=== PATIENT | female | born 1995 | race American Indian/Alaskan Native ===

== ENCOUNTER 2020-12-16 15:12 | Emergency (ER) | payer SELFPAY ==
[2020-12-16] MEDS ORDERED: KETOROLAC 30 MG/1 ML INJ IV ONE (17:03)
[2020-12-16] MEDS ORDERED: SODIUM CHLORIDE 0.9% 1000 ML 1,000 ML IV ONE (17:03)
[2020-12-16] MEDS ORDERED: ONDANSETRON 4 MG/2 ML INJ IV ONE (17:03)
--- NOTE | 2020-12-16 17:03 | Emergency Department Report ---
ED Abdominal Pain HPI - General Chief Complaint: Abdominal Pain Stated Complaint: ABD PAIN PUI?: No Time Seen by Provider: 12/16/20 16:34 Source: patient Mode of arrival: Ambulatory Limitations: No Limitations - History of Present Illness Initial Comments: 25-year-old female presents to the ER today with complaints of left flank pain. Patient states her symptoms started about 4 days ago and got worse yesterday. She said she thought the pain was related to [employer]'s that she had eaten, but she states that this pain has continued and has gotten worse. She states that it seems to be worse with movement and certain positions. She denies any particular injury or any strenuous activity. She states that she also has been feeling constipated, and has not had a normal bowel movement in 4 days. She has tried drinking water, coffee and smoothies without any relief of her constipation. She states that she had a fever of 101 yesterday but did not take anything for it. She denies any nausea or vomiting. She denies any UTI symptoms. She states that her last menstrual cycle ended 2 days ago, but yesterday she started bleeding again for which she had to use 3 tampons but she denies any bleeding today. She does have the Implanon. She is not concerned for . She denies any abdominal surgeries in the past. She does not do any illicit drugs and drinks socially. MD Complaint: flank pain (left ) -: Sudden Severity scale (0 -10): 7 - Related Data Previous Rx's Medication Instructions Recorded Last Taken Type Docusate Sodium [Colace] 100 mg PO BID #30 capsule 12/16/20 Unknown Rx Ketorolac [Toradol] 10 mg PO Q6H PRN #20 tablet 12/16/20 Unknown Rx cephALEXin [Keflex] 500 mg PO Q6HR #40 capsule 12/16/20 Unknown Rx Allergies Allergy/AdvReac Type Severity Reaction Status Date / Time No Known Allergies Allergy Unverified 12/16/20 15:55 ED Review of Systems ROS: Stated complaint: ABD PAIN Other details as noted in HPI Comment: All other systems reviewed and negative Constitutional: fever. denies: chills Eyes: denies: eye pain, eye discharge, vision change ENT: denies: ear pain, throat pain, dental pain, hearing loss, epistaxis, congestion Respiratory: denies: cough, shortness of breath, wheezing Cardiovascular: denies: chest pain, palpitations, dyspnea on exertion, edema, syncope, paroxysmal nocturnal dyspnea Gastrointestinal: abdominal pain, constipation. denies: nausea, vomiting, diarrhea, hematemesis, hematochezia Genitourinary: denies: urgency, dysuria, discharge Musculoskeletal: other (Left flank pain) Skin: denies: rash, lesions Neurological: denies: headache, weakness, paresthesias Psychiatric: denies: anxiety, depression Hematological/Lymphatic: denies: easy bleeding, easy bruising ED Past Medical Hx - Past Medical History Previous Medical History?: No - Surgical History Past Surgical History?: No - Medications Home Medications: Home Medications Medication Instructions Recorded Confirmed Last Taken Type Docusate Sodium [Colace] 100 mg PO BID #30 capsule 12/16/20 Unknown Rx Ketorolac [Toradol] 10 mg PO Q6H PRN #20 tablet 12/16/20 Unknown Rx cephALEXin [Keflex] 500 mg PO Q6HR #40 capsule 12/16/20 Unknown Rx ED Physical Exam - General Limitations: No Limitations General appearance: alert, in no apparent distress - Head Head exam: Present: atraumatic, normocephalic, normal inspection - Eye Eye exam: Present: normal appearance, PERRL, EOMI Pupils: Present: normal accommodation - ENT ENT exam: Present: normal exam - Neck Neck exam: Present: normal inspection, full ROM - Respiratory Respiratory exam: Present: normal lung sounds bilaterally. Absent: respiratory distress, wheezes, rales, rhonchi - Cardiovascular Cardiovascular Exam: Present: regular rate, normal rhythm, normal heart sounds - GI/Abdominal GI/Abdominal exam: Present: soft, tenderness (Mild tenderness left upper q uadrant without guarding or rebound). Absent: distended, guarding, rebound - Back Exam Back exam: Present: CVA tenderness (L) - Neurological Exam Neurological exam: Present: alert, oriented X3, CN II-XII intact, normal gait - Psychiatric Psychiatric exam: Present: normal affect, normal mood - Skin Skin exam: Present: intact ED Course Vital Signs 12/16/20 12/16/20 12/16/20 15:56 18:02 18:22 Temperature 99.6 F 99.2 F Pulse Rate 103 H 87 Respiratory 20 16 Rate Blood Pressure 134/75 134/81 [Right] O2 Sat by Pulse 98 99 100 Oximetry 12/16/20 12/16/20 19:16 20:53 Temperature 99 F Pulse Rate 84 97 H Respiratory 18 16 Rate Blood Pressure 133/79 110/79 [Right] O2 Sat by Pulse 100 100 Oximetry ED Medical Decision Making - Lab Data Result diagrams: 12/16/20 17:06 12/16/20 17:06 - Radiology Data Radiology results: report reviewed Patient: MARIE JANE MR#: [id number] : 1995 Acct:[id number] Age/Sex: 25 / F ADM Date: 12/16/20 Loc: ED Attending Dr: Ordering Physician: DASHA VALLADARES Date of Service: 12/16/20 Procedure(s): CT abdomen pelvis wo/w con Accession Number(s): [id number] cc: DASHA VALLADARES CT ABDOMEN AND PELVIS WITH CONTRAST INDICATION: left flank pain OMNI 300 100 ML CONTRAST: 100 cc Omnipaque 300 IV COMPARISON: None available. All CT scans at this location are performed using CT dose reduction for ALARA by means of automated exposure control. FINDINGS: Lung bases are clear. No pneumoperitoneum is seen. No definite abdominal masses are seen. Gallbladder and bile ducts appear within normal limits. No evidence of bowel obstruction is seen. No inflammatory changes are seen. No lymphadenopathy is noted. No free fluid is seen. No pelvic masses are noted. A normal appendix is seen medial to the cecum. A small linear density is noted in the right lateral paracolic gutter area with a small calcification in is not clearly related to the more medial appendix but is of doubtful significance. Mild evidence of constipation is seen, mostly right-sided. The kidneys are seen in a fairly early phase of contrast which I believe likely accounts for small bilateral areas of decreased cortical density. No definite masses are seen in the kidneys or other areas of the abdomen or pelvis. No urinary obstructive changes are seen. No obvious urinary tract calculi are noted. IMPRESSION: 1. Possible mild constipation, mostly right-sided 2. Appearance of the kidneys probably relates to phase of contrast as above. If the patient has a urinary tract infection and clinical evidence of pyelonephritis these could assume more significance as focal areas of possible infection but I do not favor that diagnosis solely from this study. No urinary obstructive changes are seen. Signer Name: Ephraim Yung MD Signed: 12/16/2020 7:22 PM Workstation Name: [id number] Transcribed By: GJ Dictated By: Ephraim Yung MD Electronically Authenticated By: Ephraim Yung MD Signed Date/Time: 12/16/201921 DD/ 13 TD/TT: - Medical Decision Making 2024: Currently sitting in the bed, on her phone and watching TV. She appears to be feeling better. She is currently not toxic or ill-appearing. She is neurologically intact with a normal gait. Repeat vital signs have been stable. All labs reviewed --- CBC shows elevated white count of 14 but otherwise unremarkable; CMP unremarkable; hCG negative; CT abdomen pelvis shows IMPRESSION: 1. Possible mild constipation, mostly right-sided 2. Appearance of the kidneys probably relates to phase of contrast as above. If the patient has a urinary tract infection and clinical evidence of pyelonephritis these could assume more significance as focal areas of possible infection but I do not favor that diagnosis solely from this study. No urinary obstructive changes are seen. Patient urinalysis is positive for UTI. Given patient location of pain, CVA tenderness on exam, white count of 14 and urinalysis showing UTI, there is concern for pyelonephritis. Patient is currently well-appearing and not in any significant distress. She is able to tolerate p.o. And her vital signs are stable and therefore at this time there is no indication for admission to the hospital at this time. Discussed all lab results and CT results and concerning diagnosis with patient. Patient will be treated outpatient with antibiotics, and encouraged to drink lots of water. She will be given Colace to help with her constipation. Patient expressed understanding of all instructions and agreed with plan. Patient stable at time of discharge. Critical care attestation.: If time is entered above; I have spent that time in minutes in the direct care of this critically ill patient, excluding procedure time. ED Disposition Clinical Impression: Pyelonephritis Disposition: 01 HOME / SELF CARE / HOMELESS Is pt being admited?: No Does the pt Need Aspirin: No Condition: Stable Instructions: Pyelonephritis, Adult, [id number], Abdominal Pain (ED) Additional Instructions: I recommend that you taking the keflex as prescribed and a taking the toradol as prescribed. Take the colace as prescribed. Increase your water intake. Follow up with your PCP this week. Return to ED if worse. Prescriptions: Docusate Sodium [Colace] 100 mg PO BID #30 capsule cephALEXin [Keflex] 500 mg PO Q6HR #40 capsule Ketorolac [Toradol] 10 mg PO Q6H PRN #20 tablet PRN Reason: Pain Referrals: [facility] [place] [Provider Group] - 3-5 Days Forms: Work/School Release Form(ED) Time of Disposition: 20:13
[2020-12-16 17:43] LABS: Basophils # (Auto) 0.1 K/mm3 (0.0-0.1); Basophils % (Auto) 0.6 % (0.0-1.8); Eosinophils % (Auto) 0.3 % (0.0-4.3); Hematocrit 36.9 % (30.3-42.9); Hemoglobin 12.5 gm/dl (10.1-14.3); Lymphocytes # (Auto) 2.9 K/mm3 (1.2-5.4); Lymphocytes % (Auto) 20.7 % (13.4-35.0); Mean Corpuscular HGB Conc 34 % (30-34); Mean Corpuscular Volume 92 fl (79-97); Monocytes # (Auto) 0.9 K/mm3 (0.0-0.8); Monocytes % (Auto) 6.7 % (0.0-7.3); Platelet Count 341 K/mm3 (140-440); Red Blood Count 4.03 M/mm3 (3.65-5.03); Red Cell Distribution Width 12.1 % (13.2-15.2)
[2020-12-16 18:03] LABS: Alanine Aminotransferase 8 units/L (7-56); Albumin 4.4 g/dL (3.9-5); BUN/Creatinine Ratio 11; Blood Urea Nitrogen 9 mg/dL (7-17); Calcium 9.3 mg/dL (8.4-10.2); Hemolysis Index 10
--- NOTE | 2020-12-16 19:26 | Cat Scan Report ---
CT ABDOMEN AND PELVIS WITH CONTRAST INDICATION: left flank pain OMNI 300 100 ML CONTRAST: 100 cc Omnipaque 300 IV COMPARISON: None available. All CT scans at this location are performed using CT dose reduction for ALARA by means of automated e xposure control. FINDINGS: Lung bases are clear. No pneumoperitoneum is seen. No definite abdominal masses are seen. G allbladder and bile ducts appear within normal limits. No evidence of bowel obstruction is seen. No i nflammatory changes are seen. No lymphadenopathy is noted. No free fluid is seen. No pelvic masses ar e noted. A normal appendix is seen medial to the cecum. A small linear density is noted in the right lateral p aracolic gutter area with a small calcification in is not clearly related to the more medial appendix but is of doubtful significance. Mild evidence of constipation is seen, mostly right-sided. The kidneys are seen in a fairly early phase of contrast which I believe likely accounts for small bi lateral areas of decreased cortical density. No definite masses are seen in the kidneys or other area s of the abdomen or pelvis. No urinary obstructive changes are seen. No obvious urinary tract calculi are noted. IMPRESSION: 1. Possible mild constipation, mostly right-sided 2. Appearance of the kidneys probably relates to phase of contrast as above. If the patient has a uri nary tract infection and clinical evidence of pyelonephritis these could assume more significance as focal areas of possible infection but I do not favor that diagnosis solely from this study. No urinar y obstructive changes are seen. Signer Name: Ephraim Yung MD Signed: 12/16/2020 7:22 PM Workstation Name: [id number]
[2020-12-16 19:41] LABS: Bilirubin,Urine NEG (Negative); Blood,Urine SM (Negative); Color,Urine Yellow (Yellow); Protein,Urine <15 mg/dL mg/dL (Negative); Urobilinogen,Urine < 2.0 mg/dL (<2.0)
[2020-12-16] MEDS ORDERED: cephALEXin 500 MG CAP PO ONE (20:24)
[2020-12-16 20:58] VITALS: BP 110/79
== END 2020-12-16 20:58 | disposition home or self-care (01) ==
LOC: ED 15:12
DX: N12 Tubulo-interstitial nephritis, not specified as acute or chronic (principal); R10.9 Unspecified abdominal pain; K59.00 Constipation, unspecified; R50.9 Fever, unspecified
CPT/HCPCS: 36415; 74178; 80053; 81001; 83735; 84703; 85025; 87076; 87086; 87186; 96361; 96374; 96375; 99284; J1885; J2405; J7030; Q9967